=== PATIENT | male | born 1940 | race Caucasian/White ===

== ENCOUNTER 2020-09-09 21:14 | Observation (INO) | payer MEDICARE, BC ==
[~2020-09-09] VITALS: Ht 152.4 cm; Wt 88.0 kg
[~2020-09-09 21:14] MED LIST: DIGOXIN INJ 0.25 MG/ML 2 ML AMP IV STA; DILTIAZEM HCL 5 MG/ML 5 ML VIAL IV STA; LOVENOX30 MG/0.3 SC; [UNRECOGNIZED DRUG - OTHER]; [UNRECOGNIZED DRUG - REMARK]
[2020-09-09] MEDS ORDERED: ASPIRIN 81 MG CHEW TAB PO ONE (21:15)
[2020-09-09] MEDS ORDERED: SODIUM CHLORIDE 0.9% 1000ML 1,000 ML IV STA (21:16)
[2020-09-09 21:21] LABS: BASOPHILS # (AUTO) 0.1 (0.0-0.1); BASOPHILS % 0.5 % (0.0-1.0); EOSINOPHILS # (AUTO) 0.2 (0.0-0.4); EOSINOPHILS % 2.3 % (0.0-6.0); HEMATOCRIT 38.6 % (38.2-49.6); HEMOGLOBIN 12.2 g/dL (14.0-18.0); LYMPHOCYTES # (AUTO) 1.9 (1.0-3.2); LYMPHOCYTES % 18.6 % (18.0-39.1); MEAN CORPUSCULAR HEMOGLOBIN 26.1 pg (28-32); MEAN CORPUSCULAR HGB CONC 31.6 g/dL (31-35); MEAN CORPUSCULAR VOLUME 82.5 fL (81-99); MONOCYTES # (AUTO) 1.4 (0.2-0.8); MONOCYTES % 14.3 % (4.4-11.3); NEUTROPHILS # (AUTO) 6.4 (2.1-6.9); NEUTROPHILS % 63.9 % (38.7-80.0); PLATELET COUNT 278 x10e3/uL (140-360); RED BLOOD COUNT 4.68 x10e6/uL (4.3-5.7); RED CELL DISTRIBUTION WIDTH 14.6 % (11.7-14.4)
[2020-09-09 21:44] LABS: ALBUMIN 3.5 g/dL (3.5-5.0); ALBUMIN/GLOBULIN RATIO 0.8 (0.8-2.0); ANION GAP 14.1 mmol/L (8-16); CALCIUM 8.9 mg/dL (8.4-10.2); CREATININE, SERUM 1.28 mg/dL (0.72-1.25); POTASSIUM 4.1 mmol/L (3.5-5.1)
[2020-09-09] MEDS ORDERED: METOPROLOL TARTRATE INJ 1 MG/ML VIAL IV STA (22:02)
[2020-09-09 22:04] LABS: CREATINE KINASE MB 21.2 ng/mL (0-5.0); THYROID STIMULATING HORMONE 3.221 uIU/mL (0.350-4.940)
[2020-09-09] MEDS ORDERED: METOPROLOL TARTRATE INJ 1 MG/ML VIAL ONE (22:13)
[2020-09-09] MEDS ORDERED: ONDANSETRON HCL INJ 2MG/ML 2ML 2 MG/ML VIAL IV PRN (22:30)
[2020-09-09] MEDS ORDERED: MORPHINE SULFATE INJ 4 MG/ML INJ 1ML IV PRN (22:30)
[2020-09-10] VITALS (8 sets, daily range): BP systolic 119–133; BP diastolic 66–76
[2020-09-10] MEDS ORDERED: LOSARTAN POTASS25 MG PO (01:47)
[2020-09-10] MEDS ORDERED: LATANOPROST2.5 ML OU (01:47)
[2020-09-10] MEDS ORDERED: TIMOPTIC 0.5%1 EACH OU (01:47)
[2020-09-10] MEDS ORDERED: CHLORDIAZEPOX-1 EACH PO (01:47)
[2020-09-10] MEDS ORDERED: ELIQUIS5 MG PO (01:47)
[2020-09-10] MEDS ORDERED: ZINC50 M2 PO (01:48)
[2020-09-10] MEDS ORDERED: ASTAXANTHIN4 MG PO (01:48)
[2020-09-10] MEDS ORDERED: VITAMIN D3125 MCG PO (01:48)
[2020-09-10] MEDS ORDERED: VITAMIN C1000 MG PO (01:48)
[2020-09-10] MEDS ORDERED: VITAMIN E400 UNI1 PO (01:48)
[2020-09-10] MEDS ORDERED: MAGNESIUM CITR100 MG PO (01:48)
[2020-09-10] MEDS: ASCORBIC ACID 500 MG TAB PO SCH (09:00)
[2020-09-10] MEDS: TIMOLOL MALEATE 0.5% OPTH DRP 5 ML BTL OU SCH (09:00)
[2020-09-10] MEDS: LOSARTAN POTASSIUM 25 MG TAB PO SCH (09:00)
[2020-09-10] MEDS: MAG CITRATE PO SCH ×3 (09:00→20:31)
[2020-09-10] MEDS: ZINC AMINO ACID CHELATE PO SCH (09:00)
[2020-09-10] MEDS ORDERED: METOPROLOL TARTRATE 50 MG TAB PO SCH (09:00)
[2020-09-10] MEDS: [UNRECOGNIZED DRUG - OTHER] PO SCH ×3 (09:00→20:31)
[2020-09-10] MEDS: POTASSIUM CHLORIDE 10MEQ EA PO SCH (09:10)
[2020-09-10] MEDS: APIXABAN 5 MG TABLET PO SCH ×2 (09:10→16:49)
[2020-09-10] MEDS: METOPROLOL TARTRATE 25 MG TAB PO SCH ×2 (09:11→16:50)
[2020-09-10] MEDS: VITAMIN E 400 UNIT CAP PO SCH (09:12)
[2020-09-10] MEDS: FUROSEMIDE INJ 10 MG/ML 4 ML VIAL IV SCH (09:17)
[2020-09-10 10:34] LABS: BASOPHILS % 0.4 % (0.0-1.0); EOSINOPHILS # (AUTO) 0.2 (0.0-0.4); EOSINOPHILS % 2.1 % (0.0-6.0); HEMATOCRIT 39.4 % (38.2-49.6); HEMOGLOBIN 12.3 g/dL (14.0-18.0); LYMPHOCYTES # (AUTO) 1.1 (1.0-3.2); LYMPHOCYTES % 14.9 % (18.0-39.1); MEAN CORPUSCULAR HEMOGLOBIN 26.2 pg (28-32); MEAN CORPUSCULAR HGB CONC 31.2 g/dL (31-35); MEAN CORPUSCULAR VOLUME 83.8 fL (81-99); MONOCYTES # (AUTO) 0.8 (0.2-0.8); MONOCYTES % 10.9 % (4.4-11.3); NEUTROPHILS # (AUTO) 5.4 (2.1-6.9); NEUTROPHILS % 71.3 % (38.7-80.0); PLATELET COUNT 289 x10e3/uL (140-360); RED CELL DISTRIBUTION WIDTH 14.7 % (11.7-14.4)
[2020-09-10 10:46] LABS: ALANINE AMINOTRANSFERASE 13 IU/L (0-55); ALBUMIN 3.6 g/dL (3.5-5.0); ALBUMIN/GLOBULIN RATIO 0.8 (0.8-2.0); ALKALINE PHOSPHATASE 96 IU/L (40-150); ANION GAP 14.9 mmol/L (8-16); BLOOD UREA NITROGEN 23 mg/dL (7-26); BUN/CREATININE RATIO 20 (6-25); CALCIUM 8.9 mg/dL (8.4-10.2); CARBON DIOXIDE 23 mmol/L (22-29); CHLORIDE 106 mmol/L (98-107); CREATININE, SERUM 1.16 mg/dL (0.72-1.25); EST GLOMERULAR FILTRATION RATE > 60 ML/MIN (60-); GLUCOSE 129 mg/dL (74-118); POTASSIUM 3.9 mmol/L (3.5-5.1); SODIUM 140 mmol/L (136-145)
[2020-09-10 11:14] LABS: CREATINE KINASE MB 17.3 ng/mL (0-5.0)
[2020-09-10] MEDS: AMIODARONE HCL 200 MG TAB PO SCH ×2 (15:00→20:10)
[2020-09-10 15:51] LABS: CREATINE KINASE MB 14.7 ng/mL (0-5.0)
[2020-09-10] MEDS ORDERED: LATANOPROST(OPTH) 2.5 ML BTL OU SCH (21:00)
[2020-09-11] VITALS: BP 121/76
[2020-09-11 04:00] VITALS: BP 124/70
[2020-09-11 06:04] LABS: BASOPHILS % 0.4 % (0.0-1.0); EOSINOPHILS # (AUTO) 0.3 (0.0-0.4); EOSINOPHILS % 3.5 % (0.0-6.0); HEMATOCRIT 37.5 % (38.2-49.6); HEMOGLOBIN 11.4 g/dL (14.0-18.0); LYMPHOCYTES # (AUTO) 1.5 (1.0-3.2); LYMPHOCYTES % 19.2 % (18.0-39.1); MEAN CORPUSCULAR HEMOGLOBIN 25.3 pg (28-32); MEAN CORPUSCULAR HGB CONC 30.4 g/dL (31-35); MEAN CORPUSCULAR VOLUME 83.3 fL (81-99); MONOCYTES % 12.2 % (4.4-11.3); NEUTROPHILS % 64.4 % (38.7-80.0); PLATELET COUNT 270 x10e3/uL (140-360); RED CELL DISTRIBUTION WIDTH 14.9 % (11.7-14.4)
[2020-09-11 06:29] LABS: ALANINE AMINOTRANSFERASE 11 IU/L (0-55); ALBUMIN/GLOBULIN RATIO 0.8 (0.8-2.0); ALKALINE PHOSPHATASE 82 IU/L (40-150); ANION GAP 12.1 mmol/L (8-16); BLOOD UREA NITROGEN 25 mg/dL (7-26); BUN/CREATININE RATIO 23 (6-25); CALCIUM 8.6 mg/dL (8.4-10.2); CARBON DIOXIDE 24 mmol/L (22-29); CHLORIDE 110 mmol/L (98-107); CHOL/HDL RATIO 3.3 (3.9-4.7); CHOLESTEROL 103 MD/DL (0-199); CREATININE, SERUM 1.08 mg/dL (0.72-1.25); EST GLOMERULAR FILTRATION RATE > 60 ML/MIN (60-); GLUCOSE 101 mg/dL (74-118); HDL CHOLESTEROL 31 MG/DL (40-60); LDL CHOLESTEROL 54 MG/DL (60-130); POTASSIUM 4.1 mmol/L (3.5-5.1); SODIUM 142 mmol/L (136-145); TRIGLYCERIDES 92 MG/DL (0-149)
[2020-09-11 06:43] LABS: THYROID STIMULATING HORMONE 2.479 uIU/mL (0.350-4.940)
[2020-09-11 08:24] VITALS: BP 153/87
[2020-09-11] MEDS: FUROSEMIDE INJ 10 MG/ML 4 ML VIAL IV SCH (08:39)
[2020-09-11] MEDS: [UNRECOGNIZED DRUG - OTHER] PO SCH (08:40)
[2020-09-11] MEDS: TIMOLOL MALEATE 0.5% OPTH DRP 5 ML BTL OU SCH (08:40)
[2020-09-11] MEDS: LOSARTAN POTASSIUM 25 MG TAB PO SCH (08:40)
[2020-09-11] MEDS: ZINC AMINO ACID CHELATE PO SCH (08:40)
[2020-09-11] MEDS: APIXABAN 5 MG TABLET PO SCH (08:40)
[2020-09-11] MEDS: MAG CITRATE PO SCH (08:40)
[2020-09-11] MEDS: AMIODARONE HCL 200 MG TAB PO SCH (08:40)
[2020-09-11] MEDS: METOPROLOL TARTRATE 25 MG TAB PO SCH (08:41)
[2020-09-11] MEDS: ASCORBIC ACID 500 MG TAB PO SCH (08:41)
[2020-09-11] MEDS: POTASSIUM CHLORIDE 10MEQ EA PO SCH (08:41)
[2020-09-11] MEDS: VITAMIN E 400 UNIT CAP PO SCH (08:41)
[2020-09-11 09:04] VITALS: BP 153/87
[2020-09-11] MEDS ORDERED: LOPRESSOR25 MG PO (09:35)
[2020-09-11] MEDS ORDERED: LASIX20 MG PO (09:35)
[2020-09-11] MEDS ORDERED: K DUR10 MEQ PO (09:36)
[2020-09-11] MEDS ORDERED: AMIODARONE HCL200 MG PO (09:36)
== END 2020-09-11 10:00 | disposition home or self-care (01) ==
LOC: ER 22:34 → ERHOLD 09-10 00:14 → INTOOBSV 09-10 00:14 → MED/SURG 09-10 00:16
PROVIDERS: ADMIT Internal Medicine; ATTEND Internal Medicine
DX: I48.0 Paroxysmal atrial fibrillation (principal); I13.0 Hypertensive heart and chronic kidney disease with heart failure and stage 1 through stage 4 chronic kidney disease, or unspecified chronic kidney disease; Z79.01 Long term (current) use of anticoagulants; I50.33 Acute on chronic diastolic (congestive) heart failure; M62.82 Rhabdomyolysis; E86.0 Dehydration; Z86.718 Personal history of other venous thrombosis and embolism; Z20.822 Contact with and (suspected) exposure to COVID-19; C7B.8 Other secondary neuroendocrine tumors; N18.9 Chronic kidney disease, unspecified
CPT/HCPCS: 36415 ×3; 71045; 80053 ×3; 80061; 82550 ×2; 82553 ×2; 83880; 84443 ×2; 84484 ×2; 85025 ×3; 93005; 93306; 99284; G0378 ×2; J1160; J1940 ×2; J7030; U0002